=== PATIENT | female | born 1945 | race Two or more races ===

== ENCOUNTER 2017-10-28 10:28 | Outpatient (CLI) | payer OTHER ==
[~2017-10-28 10:28] MED LIST: NABUMETONE500 MG PO; PERCOCET 5/3251 TAB PO
== END 2017-10-28 10:43 | disposition home or self-care (01) ==
LOC: MAMO-SONO 10:28
DX: Z12.31 Encounter for screening mammogram for malignant neoplasm of breast (principal); Z87.898 Personal history of other specified conditions; Z12.39 Encounter for other screening for malignant neoplasm of breast; K81.9 Cholecystitis, unspecified

== ENCOUNTER 2017-12-04 13:44 | Outpatient (CLI) | payer OTHER | END 2017-12-04 14:30 | disposition home or self-care (01) | LOC: RAD 13:44 | DX: Z01.89 Encounter for other specified special examinations (principal) ==

== ENCOUNTER 2017-12-04 14:45 | Outpatient (CLI) | payer OTHER | END 2017-12-04 14:51 | disposition home or self-care (01) | LOC: EKG 14:45 | DX: R94.31 Abnormal electrocardiogram [ECG] [EKG] (principal) ==

== ENCOUNTER 2018-11-11 16:20 | Outpatient (CLI) | payer OTHER | END 2018-11-11 16:35 | disposition home or self-care (01) | LOC: LAB 16:20 | DX: J45.998 Other asthma (principal); J09.X2 Influenza due to identified novel influenza A virus with other respiratory manifestations; D64.89 Other specified anemias ==

== ENCOUNTER → 2019-01-19 | Outpatient (CLI) | payer OTHER | END | disposition home or self-care (01) | LOC: MRI 13:05 | DX: M54.5 Low back pain (principal); M25.562 Pain in left knee | CPT/HCPCS: 72148; 73719 ==

== ENCOUNTER 2019-01-27 14:40 | Outpatient (CLI) | payer OTHER | END 2019-01-27 14:52 | disposition home or self-care (01) | LOC: EKG 14:40 | DX: I10 Essential (primary) hypertension (principal); R07.89 Other chest pain ==

== ENCOUNTER 2019-03-20 12:23 | Emergency (ER) | payer OTHER ==
[~2019-03-20] VITALS: Ht 152.4 cm; Wt 57.2 kg
[2019-03-20] MEDS ORDERED: TOPROL XL50 M1 PO (12:58)
[2019-03-20] MEDS ORDERED: METFORMIN HCL500 M3 PO (12:58)
[2019-03-20] MEDS ORDERED: NORVASC5 MG PO (12:59)
[2019-03-20] MEDS ORDERED: ATACAND HCT 161 EACH PO (12:59)
== END 2019-03-20 19:23 | disposition home or self-care (01) ==
LOC: ER 12:23 → CPU-OBS 13:08 → ER 13:08
DX: I16.0 Hypertensive urgency (principal); I10 Essential (primary) hypertension; R07.89 Other chest pain

== ENCOUNTER 2019-07-27 11:36 | Outpatient (CLI) | payer OTHER ==
[~2019-07-27 11:36] MED LIST changes: +ATACAND HCT 161 EACH PO; +METFORMIN HCL500 M3 PO; +NORVASC5 MG PO; +TOPROL XL50 M1 PO
== END 2019-07-27 14:48 | disposition home or self-care (01) ==
LOC: MAMO-SONO 11:36
DX: Z12.31 Encounter for screening mammogram for malignant neoplasm of breast (principal); Z87.898 Personal history of other specified conditions

== ENCOUNTER 2021-02-09 11:26 | Outpatient (CLI) | payer OTHER | END 2021-02-09 11:35 | disposition home or self-care (01) | LOC: RAD 11:26 | PROVIDERS: ATTEND Specialist | DX: R07.89 Other chest pain (principal); J45.998 Other asthma ==

== ENCOUNTER 2021-02-26 14:52 | Outpatient (CLI) | payer OTHER | END 2021-02-26 15:05 | disposition home or self-care (01) | LOC: RAD 14:52 | PROVIDERS: ATTEND Specialist | DX: M17.0 Bilateral primary osteoarthritis of knee (principal) ==

== ENCOUNTER 2022-11-15 14:51 | Outpatient (CLI) | payer OTHER | END 2022-11-15 14:56 | disposition home or self-care (01) | LOC: RAD 14:51 | PROVIDERS: ATTEND Specialist | DX: S52.531A Colles' fracture of right radius, initial encounter for closed fracture (principal); S82.091A Other fracture of right patella, initial encounter for closed fracture ==

== ENCOUNTER 2023-03-14 12:03 | Outpatient (CLI) | payer OTHER | END 2023-03-14 12:12 | disposition home or self-care (01) | LOC: TOM 12:03 | PROVIDERS: ATTEND Specialist | DX: S82.001A Unspecified fracture of right patella, initial encounter for closed fracture (principal); Z88.0 Allergy status to penicillin ==